=== PATIENT | female | born 1955 | race Caucasian/White ===

== ENCOUNTER 2019-01-21 00:14 | Emergency (ER) ==
[2019-01-21 00:27] VITALS: TEMP 97.9; BMI 15.7
[2019-01-21] MEDS ORDERED: URO-JET MUCOUSMEMB STA (00:37)
--- NOTE | 2019-01-21 01:52 | CT ---
Exam: CT of the chest without contrast History: Mental status change Technique: [address] of the chest without contrast FINDINGS: Granulomatous calcifications scattered bilaterally. No lung infiltrates. Atherosclerotic calcification of the aorta without aneurysm. No pathologic lymph node enlargement of the mediastinu m. Granulomatous lymph node calcifications are present. No acute chest wall abnormalities are seen. See abdominal CT for upper abdomen. Impression: No acute findings of the chest
--- NOTE | 2019-01-21 01:53 | CT ---
EXAM: CT brain without contrast HISTORY: Mental status change TECHNIQUE: CT of the brain without intravenous contrast FINDINGS: There is no acute hemorrhage midline shift or mass effect. No hydrocephalus or abnormal e xtra-axial fluid collection. No significant parenchymal attenuation abnormality. The bony cranium a ppears normal. The visualized paranasal sinuses are clear. Soft tissues without significant abnormal ity. IMPRESSION: 1. CT of the brain within normal limits.
--- NOTE | 2019-01-21 02:00 | CT ---
EXAM: CT of the abdomen and pelvis without contrast. HISTORY: Jaundice. Nausea and vomiting. PROCEDURE: Contiguous axial CT images of the abdomen and pelvis without contrast with coronal and sa gittal reformats. COMPARISON: CT abdomen/pelvis 12/09/2018. FINDINGS: The exam is limited without IV contrast. The liver is normal in appearance. The gallbladd er is enlarged measuring 4.2 cm in diameter. There are gallstones in the gallbladder. The gallbladd er wall is not well visualized by CT. The pancreas, spleen, adrenal glands and kidneys are normal in appearance. The abdominal aorta is normal in appearance. There are a few enlarged para-aortic and aortocaval lymph nodes measuring up to 1.1 cm in short axis. The appendix is normal in appearance. There is diverticulosis of the colon with no evidence of diverticulitis. No free air in the abdomen or pelvis. There is mild ascites in the abdomen and pelvis. There is a recanalized umbilical vein. There are varices in the anterior abdominal and pelvic wall. The bladder is adequately filled. The re is a Acosta catheter in the bladder. There is minimal air in the bladder consistent with the Acosta catheter placement. The uterus is unremarkable. There are degenerative changes in the spine. Ther e are chronic bilateral L5 pars defects with 4 mm anterolisthesis of L5 on S1. Impression: Cholelithiasis with enlarged gallbladder as described. Recommend ultrasound for further evaluation. Mild ascites. 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 Diverticulosis of the colon. Lymphadenopathy as described. Recommend follow-up CT in 6 months to confirm stability. Acosta catheter. Chronic bilateral L5 pars defects with 5 mm anterolisthesis of L5 on S1.
[2019-01-21] MEDS ORDERED: SODIUM CHLORIDE 1,000 ML IV STA (02:46)
[2019-01-21] MEDS ORDERED: VANCOMYCIN 500 MG in SODIUM CHLORIDE 100 ML IV STA (02:47)
--- NOTE | 2019-01-21 02:50 | ED.PDOC ---
General ED Provider: Dr. ALEX REYES-ER Chief Complaint: Altered Mental Status Stated Complaint: sent here by [facility] ambulance---hx of liver issues--- noted jaundice--not eating ---very confused/encephalopathic Time Seen by Physician: 00:20 Mode of Arrival: Ambulance Information Source: EMT Exam Limitations: No limitations Primary Care Provider: STELLA GRAVES Nursing and Triage Documentation Reviewed and Agree: Yes Does patient meet sepsis criteria?: No System Inflammatory Response Syndrome: Not Applicable Sepsis Protocol: For patient's 13 years and over: Temp is 96.8 and below OR 101 and greater Pulse >90 BPM Resp >20/minute Acutely Altered Mental Status Are patient's symptoms suggestive of a new infection, such as: -Pneumonia -Skin, Soft Tissue -Endocarditis -UTI -Bone, Joint Infection -Implantable Device -Acute Abdominal Infection -Wound Infection -Meningitis -Blood Stream Catheter Infection -Unknown Neurological Complaint Exam - Altered Mental Status Complaint/Exam Current Mental Status: Unresponsiveness Onset: Gradual Symptoms Are: Still present Timing: Constant Current Severity: None Eye Deviation Present: No Character: Reports: Confusion, Responsiveness, Lethargy Alleviating: Reports: None Associated Signs and Symptoms: Denies: Dizziness, Weakness, Headache, Fever, Illness, Nuchal rigidity, Seizure, Nausea, Vomiting, Recently depressed, Trauma CVA Risk Factors: Reports: Diabetes Carotid Bruit Present: No Nystagmus Present: Yes Gag Reflex Present: No Focal Weakness: Present: None Focal Sensory Loss: Present: None Gait: Normal [id number]: Normal Findings Romberg Test Positive: No Babinski Sign: Negative Right, Negative Left Heel to Toe Normal: Yes Signs of Injury: Present: Normal findings Thrombolytics Considered: No Differential Diagnoses: Metabolic Disorder Review of Systems - Review Of Systems Constitutional: Reports: Malaise, Weakness, Loss of appetite Eyes: Reports: No symptoms Ears, Nose, Mouth, Throat: Reports: No symptoms Respiratory: Reports: No symptoms Cardiac: Reports: No symptoms GI: Reports: No symptoms : Reports: No symptoms Musculoskeletal: Reports: No symptoms Skin: Reports: Change in color Neurological: Reports: Cognitive dysfunction Endocrine: Reports: No symptoms Hematologic/Lymphatic: Reports: No symptoms All Other Systems: Reviewed and Negative Past Medical History - Past Medical History Previously Healthy: No Endocrine: Reports: DM 2 Cardiovascular: Reports: Unknown Respiratory: Reports: Unknown Hematological: Reports: Unknown Gastrointestinal: Reports: Unknown Genitourinary: Reports: Unknown Neuro/Psych: Reports: Unknown Musculoskeletal: Reports: Unknown Cancer: Reports: Unknown Last Menstrual Period: post menopausal - Surgical History General Surgical History: Reports: Unknown - Family History Family History: Reports: Unknown - Social History Smoking Status: Never smoker Hx Substance Use: No Alcohol Screening: None - Immunizations Tetanus Shot up to Date: (unknown) Physical Exam - Physical Exam Appearance: Well-appearing, Ill-appearing, No pain distress, Well-nourished Ill-appearing: Mild Eyes: [place], EOMI, Conjunctiva clear ENT: Ears normal Neck: Supple Respiratory: Airway patent, Breath sounds clear, Breath sounds equal, Respirations nonlabored Cardiovascular: RRR, Pulses normal, No rub, No murmur GI/: Soft, Nontender, No masses, Bowel sounds normal, Hepatomegaly, Splenomegaly Musculoskeletal: Normal strength, ROM intact, No edema, No calf tenderness Skin: Warm, Dry, Normal color Neurological: Disoriented Psychiatric: Affect appropriate, Mood appropriate Interpretation - Radiology Interpretation Radiology Interpretation By: Radiologist Radiology Results: Negative Exam Interpreted: CT Scan - EKG Interpretation Time of EKG #1: 02:52 Rate: Normal Rhythm: Sinus Ectopy: None [place]: NL ST Segment: Normal Interpretation: nsr Physician Notification - Case Discussed Physician Notified: dr [email or web address] Time of Notification: 03:00 Critical Care Note - Critical Care Note Total Time (mins): 45 Course - Course Hematology/Chemistry: 01/21/19 00:50 01/21/19 00:50 Orders, Labs, Meds: Lab Review 01/21/19 01/21/19 01/21/19 00:34 00:50 00:50 WBC 7.23 RBC 2.93 L Hgb 10.1 L Hct 29.3 L MCV 100.0 H MCH 34.5 H MCHC 34.5 RDW Coeff of Tj 15.3 H Plt Count 61 L Immature Gran % (Auto) 0.3 Neut % (Auto) 47.3 Lymph % (Auto) 41.2 [place] % (Auto) 6.5 Eos % (Auto) 3.9 Baso % (Auto) 0.8 Immature Gran # (Auto) 0.0 Neut # (Auto) 3.4 Lymph # (Auto) 3.0 [place] # (Auto) 0.5 Eos # (Auto) 0.3 Baso # (Auto) 0.1 Puncture Site Lb O2 Saturation 100.0 ABG pH 7.5123 H* ABG pCO2 33.0 L ABG pO2 186.0 H ABG HCO3 26.4 H ABG Total CO2 27 ABG Base Excess 3 H Saeed Test + O2 Delivery Device Bnc Oxygen Liter Flow 2.00 FiO2 % 28.0 Sodium 132.9 L Potassium 3.78 Chloride 92.6 L Carbon Dioxide 25.9 Anion Gap 18.18 BUN 33.5 H Creatinine 1.57 H Estimated GFR (MDRD) 33.00 BUN/Creatinine Ratio 21.33 Glucose 299.9 H Lactic Acid Calcium 8.76 Total Bilirubin 3.77 H AST 85.9 H ALT 50.3 H Alkaline Phosphatase 153.4 H Ammonia Total Protein 7.88 Albumin 2.95 L Globulin 4.93 Albumin/Globulin Ratio 0.59 Amylase 97.2 Lipase 871.9 H Procalcitonin Urine Color Urine Clarity Urine pH Ur Specific [place] Urine Protein Urine Glucose (UA) Urine Ketones Urine Blood Urine Nitrite Urine Bilirubin Urine Urobilinogen Ur Leukocyte Esterase 01/21/19 01/21/19 01/21/19 00:50 00:50 00:50 WBC RBC Hgb Hct MCV MCH MCHC RDW Coeff of Tj Plt Count Immature Gran % (Auto) Neut % (Auto) Lymph % (Auto) [place] % (Auto) Eos % (Auto) Baso % (Auto) Immature Gran # (Auto) Neut # (Auto) Lymph # (Auto) [place] # (Auto) Eos # (Auto) Baso # (Auto) Puncture Site O2 Saturation ABG pH ABG pCO2 ABG pO2 ABG HCO3 ABG Total CO2 ABG Base Excess Saeed Test O2 Delivery Device Oxygen Liter Flow FiO2 % Sodium Potassium Chloride Carbon Dioxide Anion Gap BUN Creatinine Estimated GFR (MDRD) BUN/Creatinine Ratio Glucose Lactic Acid 8.15 H Calcium Total Bilirubin AST ALT Alkaline Phosphatase Ammonia 151.5 H Total Protein Albumin Globulin Albumin/Globulin Ratio Amylase Lipase Procalcitonin 0.88 Urine Color Urine Clarity Urine pH Ur Specific [place] Urine Protein Urine Glucose (UA) Urine Ketones Urine Blood Urine Nitrite Urine Bilirubin Urine Urobilinogen Ur Leukocyte Esterase 01/21/19 01:20 WBC RBC Hgb Hct MCV MCH MCHC RDW Coeff of Tj Plt Count Immature Gran % (Auto) Neut % (Auto) Lymph % (Auto) [place] % (Auto) Eos % (Auto) Baso % (Auto) Immature Gran # (Auto) Neut # (Auto) Lymph # (Auto) [place] # (Auto) Eos # (Auto) Baso # (Auto) Puncture Site O2 Saturation ABG pH ABG pCO2 ABG pO2 ABG HCO3 ABG Total CO2 ABG Base Excess Saeed Test O2 Delivery Device Oxygen Liter Flow FiO2 % Sodium Potassium Chloride Carbon Dioxide Anion Gap BUN Creatinine Estimated GFR (MDRD) BUN/Creatinine Ratio Glucose Lactic Acid Calcium Total Bilirubin AST ALT Alkaline Phosphatase Ammonia Total Protein Albumin Globulin Albumin/Globulin Ratio Amylase Lipase Procalcitonin Urine Color Yellow Urine Clarity Slightly Urine pH 5.0 Ur Specific [place] 1.015 Urine Protein Negative Urine Glucose (UA) 1+ Urine Ketones Negative Urine Blood Negative Urine Nitrite Negative Urine Bilirubin Negative Urine Urobilinogen 1.0 Ur Leukocyte Esterase Negative Orders Category Date Time Status ABG DRAW REQUEST Stat CARDIO 01/21/19 00:34 Ordered EKG-(ED ONLY) Stat CARDIO 01/21/19 00:27 Ordered EKG-(ED ONLY) Stat CARDIO 01/21/19 00:34 Stop Req Blood Sugar [ED ACCUCHECK ASSESSMENT] .ONCE EMERGENCY 01/21/19 00:27 Active ED IV/MEDIPORT/POWERPORT .ONCE EMERGENCY 01/21/19 00:34 Active Acosta [ED CATHETER INSERTION AND CARE] .ONCE EMERGENCY 01/21/19 00:37 Active ABG Stat LAB 01/21/19 00:34 Completed AMMONIA Stat LAB 01/21/19 00:50 Completed AMYLASE Stat LAB 01/21/19 00:50 Completed BLOOD CULTURE (ED ONLY) Stat LAB 01/21/19 00:50 Received CBC W/ AUTO DIFF Stat LAB 01/21/19 00:50 Completed COMPREHENSIVE METABOLIC PANEL Stat LAB 01/21/19 00:50 Completed HEPATITIS PANEL, ACUTE Stat LAB 01/21/19 00:50 Received LACTIC ACID Stat LAB 01/21/19 00:50 Completed LIPASE Stat LAB 01/21/19 00:50 Completed PROCALCITONIN Stat LAB 01/21/19 00:50 Completed URINALYSIS C & S IF INDICATED Stat LAB 01/21/19 01:20 Completed 0.9 % Sodium Chloride [Saline Flush] MEDS 01/21/19 00:34 Ordered 1 syr IVF PRN PRN Ceftriaxone Sodium [Rocephin] MEDS 01/21/19 03:12 Discontinued 2 gm .ROUTE .STK-MED ONE Ceftriaxone Sodium [Rocephin] 2 gm MEDS 01/21/19 03:06 Active 0.9 % Sodium Chloride [Sodium Chloride] 50 ml IV ONCE Lactulose MEDS 01/21/19 03:10 Discontinued 200 gm RC ONCE STA Lidocaine HCl [Uro-Jet] MEDS 01/21/19 00:37 Discontinued 10 ml [id number] ONCE STA Sodium Chloride 0.9% [Sodium Chloride] 1,000 ml MEDS 01/21/19 02:46 Active IV 125 mls/hr Vancomycin HCl [Vancomycin] MEDS 01/21/19 02:56 Discontinued 500 mg .ROUTE .STK-MED ONE Vancomycin HCl [Vancomycin] 500 mg MEDS 01/21/19 02:47 Active 0.9 % Sodium Chloride [Sodium Chloride] [address] ABDOMEN/PELVIS WO CONTRAST Stat RADS 01/21/19 00:[address] CHEST W/O CONTRAST Stat RADS 01/21/19 00:[address] HEAD W/O CONTRAST Stat RADS 01/21/19 00:35 Completed Medications Generic Name Dose Route Start Last Admin Trade Name Freq PRN Reason Stop Dose Admin Sodium Chloride 1,000 mls @ 125 mls/hr 01/21/19 02:46 01/21/19 03:07 Sodium Chloride IV 01/21/19 10:45 125 mls/hr .Q8H STA Administration Vancomycin HCl 500 mg/ Sodium 100 mls @ 100 mls/hr 01/21/19 02:47 01/21/19 03 :08 Chloride IV 01/21/19 03:46 100 mls/hr ONCE STA Administration Ceftriaxone Sodium 2 gm/ 50 mls @ 50 mls/hr 01/21/19 03:06 01/21/19 03:12 Sodium Chloride IV 01/21/19 04:05 50 mls/hr ONCE STA Administration Sodium Chloride 1 syr 01/21/19 00:34 Saline Flush IVF PRN PRN To flush IV Discontinued Medications Generic Name Dose Route Start Last Admin Trade Name Freq PRN Reason Stop Dose Admin Lactulose 200 gm 01/21/19 03:10 Lactulose RC 01/21/19 03:11 ONCE STA Lidocaine HCl 10 ml 01/21/19 00:37 01/21/19 02:23 Uro-Jet MUCOUSMEMB 01/21/19 00:38 Not Given ONCE STA Vital Signs: Temp Pulse Resp BP Pulse Ox 01/21/19 00:17 97.9 F 93 H 18 149/69 H 100 Departure - Departure Time of Disposition: 03:19 Disposition: TSF SHORT-TRM HOSP Discharge Problem: Encephalopathy Instructions: Hepatic Encephalopathy (DC) Condition: Stable Pt referred to PMD for follow-up: Yes IPMP verified?: No Allergies/Adverse Reactions: Allergies Sulfa (Sulfonamide Antibiotics) Adverse Reaction (Verified 01/21/19 00:27) Unknown Home Medications: Ambulatory Orders Glipizide 5 mg PO DAILY 01/21/19 Metformin HCl [Glucophage] 500 mg PO DAILYWM 01/21/19 Transfer Form Completed: Yes Disposition Discussed With: Family
[2019-01-21] MEDS ORDERED: VANCOMYCIN ONE (02:56)
[2019-01-21] MEDS ORDERED: LACTULOSE PO STA (03:06)
[2019-01-21] MEDS ORDERED: ROCEPHIN 2 GM in SODIUM CHLORIDE 50 ML IV STA (03:06)
[2019-01-21] MEDS ORDERED: LACTULOSE RC STA (03:10)
[2019-01-21] MEDS ORDERED: ROCEPHIN ONE (03:12)
[2019-01-21 04:47] VITALS: BP 132/52
== END 2019-01-21 07:55 | disposition short-term general hospital (02) ==
LOC: ED 00:14
DX: K72.90 Hepatic failure, unspecified without coma (principal); E11.9 Type 2 diabetes mellitus without complications; Z79.899 Other long term (current) drug therapy
CPT/HCPCS: 36415; 80053; 80074; 81001; 82140; 82150; 82803; 82962; 83605; 83690; 84145; 85025; 87040; 93005; 93010; 96361; 96365; 96366; 96367; 99285

== ENCOUNTER 2019-01-21 07:57 | Outpatient (CLI) ==
[2019-01-21 00:27] VITALS: BMI 15.7
== END 2019-01-21 09:03 | disposition short-term general hospital (02) ==
LOC: AMBL 07:57
PROVIDERS: ATTEND Internal Medicine
DX: R41.82 Altered mental status, unspecified (principal); K72.90 Hepatic failure, unspecified without coma